=== PATIENT | male | born 1940 | race Caucasian/White ===

== ENCOUNTER → 2017-01-24 | Outpatient (CLI) | payer MEDICARE ==
[~2017-01-24] MED LIST: ALTACE10 M1 PO; ANORO ELLIPTA1 EACH INH; ASPIR 8181 MG PO; LIPITOR80 MG PO; LOPRESSOR50 MG PO
== END | disposition short-term general hospital (02) ==
LOC: CLCARD 10:39
DX: I25.10 Atherosclerotic heart disease of native coronary artery without angina pectoris (principal); E78.5 Hyperlipidemia, unspecified; I10 Essential (primary) hypertension; F17.200 Nicotine dependence, unspecified, uncomplicated